=== PATIENT | male | born 1990 | race Caucasian/White ===

== ENCOUNTER 2016-12-21 21:30 | Emergency (ER) | payer OTHER ==
[~2016-12-21] VITALS: Ht 177.8 cm; Wt 81.8 kg
[~2016-12-21 21:30] MED LIST: BACTRIM
[2016-12-21 21:49] VITALS: Ht 177.8 cm; Wt 81.8 kg
--- NOTE | 2016-12-21 21:52 | ERA ---
ER Documentation Chief Complaint Date/Time DATE: 12/21/16 TIME: 21:52 Chief Complaint Left leg pain HPI The patient is a 26-year-old male, who was brought to the ER by [employer] officer for medical clearance before he went to detention. He then complained of left leg pain for the last 2 days. He did not remember how he got it but he got it before. The pain is minimal, he denies any fever, chills, neck pain, chest pain , dyspnea, abdominal pain, vomiting. He is smokes, drinks socially, denies illicit drug Past medical history: None Past surgical history: Left leg 7 years ago ROS All systems reviewed and are negative except as per history of present illness. Medications Home Meds Active Scripts Ibuprofen* (Motrin*) 600 Mg Tab, 600 MG PO Q6H Y for PAIN AND OR ELEVATED TEMP, #30 TAB Prov:ALVARO CASTREJON MD 12/21/16 Clindamycin Hcl* (Clindamycin Hcl*) 300 Mg Capsule, 300 MG PO QID for 10 Days, CAP Prov:ALVARO CASTREJON MD 12/21/16 Reported Medications [Bactrim] No Conflict Check 11/19/10 Allergies Allergies: Coded Allergies: No Known Drug Allergies (Verified Allergy, Mild, 11/19/10) PMhx/Soc History of Surgery: Yes (L tibia ORIF, appendectomy) Anesthesia Reaction: No Hx Neurological Disorder: No Hx Respiratory Disorders: No Hx Cardiac Disorders: No Hx Psychiatric Problems: No Hx Miscellaneous Medical Probl: Yes (chicken pox) Hx Alcohol Use: Yes (SOCIALLY) Hx Substance Use: Yes Hx Tobacco Use: Yes Physical Exam Vitals Vital Signs Date Time Temp Pulse Resp B/P Pulse Ox O2 Delivery O2 Flow Rate FiO2 12/21/16 21:49 98.2 98 18 170/86 98 Physical Exam Const: No acute distress. Head: Atraumatic. Eyes: Normal Conjunctiva. ENT: Normal External Ears, Nose and Mouth. Neck: Full range of motion. No meningismus. Resp: Clear to auscultation bilaterally. Cardio: Regular rate and rhythm, no murmurs. Abd: Soft, non distended, normal bowel sounds, non tender. Skin: No petechiae or rashes. Back: No midline or flank tenderness. Ext: No cyanosis, or edema. Left lateral leg with cellulitis and small early abscess, not amenable for incision and drainage Neur: Awake and alert. No focal deficit Psych: Normal Mood and Affect. Results 24 hrs Current Medications Medications (Trade) Dose Ordered Sig/Jack Route PRN Reason Start Time Stop Time Status Last Admin Dose Admin Diphtheria/ Tetanus/Acell Pertussis (Adacel) 0.5 ml ONCE ONCE IM* 12/21/16 22:30 12/21/16 22:31 Cancel Cefazolin Sodium (Ancef) 1 gm ONCE ONCE IM 12/21/16 22:30 12/21/16 22:31 Cancel Acetaminophen/ Hydrocodone Bitart ([place]edley (10/325)) 1 tab ONCE ONCE PO 12/21/16 22:30 12/21/16 22:31 Cancel Ondansetron HCl (Zofran Odt) 4 mg ONCE STAT ODT 12/21/16 22:28 12/21/16 22:29 Cancel Clindamycin HCl (Cleocin) 300 mg ONCE ONCE PO 12/21/16 23:00 12/21/16 23:00 DC 12/21/16 22:44 Ibuprofen (Motrin) 600 mg ONCE ONCE PO 12/21/16 23:00 12/21/16 23:00 DC 12/21/16 22:44 Procedures/MDM MEDICAL MAKING DECISION: The patient is a 26-year-old male, presenting with acute left leg cellulitis and early abscess. He was treated with clindamycin and Motrin The differential diagnoses considered include but are not limited to cellulitis , abscess, folliculitis, carbuncle Departure Diagnosis: Primary Impression: Cellulitis Additional Impression: Abscess Condition: Good Comments He was discharged with clindamycin and Motrin and advised to follow-up with the detention physician in 2 days, return if any concern The patient's blood pressure was elevated (>120/80) but appears stable without evidence of hypertension emergency or urgency. The patient was counseled about the risks of hypertension and urged to pursue outpatient monitoring and therapy within a week with their primary care physician. ALVARO CASTREJON MD December 21, 2016 21:52
[2016-12-21] MEDS ORDERED: ONDANSETRON (ODT) 4 MG TAB ODT STA (22:28)
[2016-12-21] MEDS ORDERED: HYDROCODONE/APAP (10/325) TAB PO ONE (22:30)
[2016-12-21] MEDS ORDERED: DIPHTH/TET/ACEL PERTUSS (ADULT) 0.5 ML VIAL IM* ONE (22:30)
[2016-12-21] MEDS ORDERED: CEFAZOLIN 1 GM INJ IM ONE (22:30)
[2016-12-21] MEDS ORDERED: CLIN-73 PO (22:37)
[2016-12-21] MEDS ORDERED: IBUP-1542 PO (22:38)
[2016-12-21] MEDS ORDERED: IBUPROFEN 600 MG TAB PO ONE (23:00)
[2016-12-21] MEDS ORDERED: CLINDAMYCIN 300 MG CAP PO ONE (23:00)
== END 2016-12-21 22:55 | disposition home or self-care (01) ==
LOC: E/R 21:30
DX: L03.116 Cellulitis of left lower limb (principal); L02.416 Cutaneous abscess of left lower limb; F17.210 Nicotine dependence, cigarettes, uncomplicated
CPT/HCPCS: 99283